=== PATIENT | male | born 1985 | race Two or more races ===

== ENCOUNTER 2021-01-24 09:08 | Outpatient (CLI) | payer OTHER | END 2021-01-24 09:42 | disposition home or self-care (01) | LOC: LAB 09:08 | PROVIDERS: ATTEND Pediatrics | DX: Z11.59 Encounter for screening for other viral diseases (principal); Z03.818 Encounter for observation for suspected exposure to other biological agents ruled out; Z20.828 Contact with and (suspected) exposure to other viral communicable diseases ==